=== PATIENT | male | born 1945 | race Caucasian/White ===

== ENCOUNTER 2023-11-25 21:40 | Emergency (ER) | payer MEDICARE, BC ==
[~2023-11-25] VITALS: Ht 185.4 cm; Wt 85.5 kg
[2023-11-25 21:51] VITALS: TEMP 97.5
[2023-11-25 22:38] VITALS: BP 148/76; PULSE 64
== END 2023-11-25 22:38 | disposition home or self-care (01) ==
LOC: COL.ER 21:40
DX: S90.121A Contusion of right lesser toe(s) without damage to nail, initial encounter (principal); Z87.891 Personal history of nicotine dependence; W22.8XXA Striking against or struck by other objects, initial encounter